=== PATIENT | male | born 1965 | race Two or more races ===

== ENCOUNTER 2023-02-05 15:26 | Inpatient (IN) | payer OTHER ==
[2023-02-05 16:01] VITALS: BMI 24.3
[2023-02-05] MEDS ORDERED: BISMUTH SUBSALICYLATE 524 MG/30 ML PO PRN (19:27)
[2023-02-05] MEDS ORDERED: MAG HYDROX/AL HYDROX/SIMETH 30 ML UNIT-DOSE CUP PO PRN (19:27)
[2023-02-05] MEDS ORDERED: IBUPROFEN 400 MG TABLET (FP) PO PRN (19:27)
[2023-02-05] MEDS ORDERED: BENZONATATE 200 MG CAPSULE PO PRN (19:27)
[2023-02-05] MEDS ORDERED: DICYCLOMINE HCL 10 MG CAPSULE PO PRN (19:27)
[2023-02-05] MEDS ORDERED: IBUPROFEN 600 MG TABLET (FP) PO PRN (19:27)
[2023-02-05] MEDS ORDERED: guaiFENesin 600 MG TABLET.ER (FP) PO PRN (19:27)
[2023-02-05] MEDS ORDERED: POLYETHYLENE GLYCOL (HEALTHYLAX) 3350 17 GM PACKET PO PRN (19:27)
[2023-02-05] MEDS ORDERED: MAGNESIUM HYDROX 2400MG/30ML ORAL SUSPENSION 30 ML CUP PO PRN (19:27)
[2023-02-05] MEDS ORDERED: P-EPHED 60MG/TRIPROLIDI 2.5MG TABLET PO PRN (19:27)
[2023-02-05] MEDS ORDERED: ACETAMINOPHEN 325 MG TABLET (FP) PO PRN (19:27)
[2023-02-05] MEDS ORDERED: LOPERAMIDE HCL 2 MG CAPSULE PO PRN (19:27)
[2023-02-05] MEDS ORDERED: NALOXONE HCL (KLOXXADO) 8 MG SPRAY NS PRN (19:27)
[2023-02-05] MEDS ORDERED: BENZOCAINE/MENTHOL (CHLORASEPTIC ) LOZENGE MM PRN (19:27)
[2023-02-05] MEDS ORDERED: NALOXONE HCL 0.4 MG/ML VIAL IM PRN (19:27)
[2023-02-05] MEDS ORDERED: NICOTINE POLACRILEX 2 MG GUM BUC PRN (19:27)
[2023-02-05] MEDS: THIAMINE HCL 100 MG TABLET (FP) PO SCH (23:10)
[2023-02-05] MEDS: MELATONIN 5 MG TABLETS PO SCH (23:10)
[2023-02-06] MEDS: PRENATAL VITAMINS W/ FOLIC ACID TABLET (FP) PO SCH (09:58)
[2023-02-06] MEDS: methaDONE HCL 10 MG TABLET (FOR DETOX USE ONLY) PO ONE (10:26)
[2023-02-06] MEDS: METOPROLOL TARTRATE 25 MG TABLET (FP) PO SCH (10:27)
[2023-02-06 11:21] LABS: HEMATOCRIT 42.3 % (35.4-49); HEMOGLOBIN 13.9 GM/dL (11.7-16.9); MCH 29.6 pg (25.7-33.7); MCHC 32.8 g/dl (32.0-35.9); MEAN CELL VOLUME 90.4 fl (80-96); MEAN PLT VOLUME 9.3 fl (7.5-11.1); PLATELET COUNT 224 10^3/uL (134-434); RBC 4.68 M/mm3 (4.00-5.60); RDW 14.3 % (11.9-15.9); WHITE BLOOD COUNT 10.1 K/mm3 (4.0-10.0)
[2023-02-06] MEDS: PNEUMOC 20-VAL CONJ-DIP CRM/PF 0.5 ML SYRINGE IM ONE (11:35)
[2023-02-06 12:00] LABS: POTASSIUM 5.5 mmol/L (3.5-5.1)
[2023-02-06 12:03] LABS: CALCIUM 8.9 mg/dL (8.5-10.1)
[2023-02-06 12:04] LABS: ALBUMIN 3.6 g/dl (3.4-5.0); BLOOD UREA NITROGEN 23.4 mg/dL (7-18)
[2023-02-06 12:08] LABS: TOT PROT 7.3 g/dl (6.4-8.2)
[2023-02-06 12:09] LABS: BILIRUBIN,TOTAL 0.6 mg/dL (0.2-1)
[2023-02-06] MEDS: ONDANSETRON *ODT* 4 MG TABLET SL PRN (15:57)
[2023-02-07] MEDS: METHOCARBAMOL 500 MG TABLET PO PRN (10:14)
[2023-02-07 12:46] LABS: BLOOD UREA NITROGEN 20.2 mg/dL (7-18)
[2023-02-07 12:49] LABS: CREATININE 0.9 mg/dL (0.55-1.3)
[2023-02-08] MEDS: ASPIRIN 81 MG CHEWABLE TABLETS PO ONE (05:14)
[2023-02-08] MEDS ORDERED: cloNIDine HCL 0.1 MG TABLET ONE (06:11)
[2023-02-08] MEDS: cloNIDine HCL 0.1 MG TABLET PO PRN (06:14)
[2023-02-08] MEDS: methaDONE HCL 10 MG TABLET (FOR DETOX USE ONLY) PO ONE (10:15)
[2023-02-09 05:19] VITALS: BP 140/99; PULSE 83; RESP 18; TEMP 97.7
[2023-02-09] MEDS ORDERED: LIDOCAINE PATCH REMOVAL MC SCH (22:00)
[2023-02-10] MEDS ORDERED: methaDONE HCL 10 MG TABLET (FOR DETOX USE ONLY) PO ONE (10:00)
[2023-02-10] MEDS ORDERED: LIDOCAINE 4% PATCH TP SCH (10:00)
== END 2023-02-09 15:08 | disposition home or self-care (01) | DRG 773 ==
LOC: YASAS 15:26 → Y3N 19:27
PROVIDERS: ADMIT Allergy & Immunology; ATTEND Surgery
PROC: HZ2ZZZZ Detoxification Services for Substance Abuse Treatment (ICD-10-PCS; principal; 2023-02-05)
DX: F11.23 Opioid dependence with withdrawal (principal); F14.20 Cocaine dependence, uncomplicated; F12.20 Cannabis dependence, uncomplicated; F17.210 Nicotine dependence, cigarettes, uncomplicated; G62.9 Polyneuropathy, unspecified; E87.6 Hypokalemia; I10 Essential (primary) hypertension; R56.9 Unspecified convulsions; R07.9 Chest pain, unspecified
CPT/HCPCS: 36415; 80048; 80053; 82962; 85027; 86780; 87635; 93005; 93010; Q0162

== ENCOUNTER 2023-02-09 07:10 | Observation (INO) | payer OTHER ==
[2023-02-09] MEDS ORDERED: ACETAMINOPHEN 1000 MG/100 ML BAG IVPB ONE (07:33)
[2023-02-09] MEDS ORDERED: MAG HYDROX/AL HYDROX/SIMETH 30 ML UNIT-DOSE CUP PO ONE (07:33)
[2023-02-09] MEDS ORDERED: FAMOTIDINE 20 MG/50 ML IVPB 20 MG/50 ML MG IVPB ONE (07:33)
[2023-02-09 08:40] LABS: BASO % 0.2 % (0-2.0); EOS % 0.4 % (0-4.5); HEMATOCRIT 49.6 % (35.4-49); HEMOGLOBIN 16.5 GM/dL (11.7-16.9); LYMPH % 19.1 % (8-40); MCH 29.4 pg (25.7-33.7); MCHC 33.3 g/dl (32.0-35.9); MEAN CELL VOLUME 88.3 fl (80-96); MEAN PLT VOLUME 8.9 fl (7.5-11.1); MONO % 11.5 % (3.8-10.2); NEUT % 68.8 % (42.8-82.8); PLATELET COUNT 266 10^3/uL (134-434); RBC 5.62 M/mm3 (4.00-5.60); RDW 14.2 % (11.9-15.9); WHITE BLOOD COUNT 12.9 K/mm3 (4.0-10.0)
[2023-02-09] MEDS ORDERED: ONDANSETRON 4 MG/2 ML VIAL IVPUSH ONE (08:49)
[2023-02-09] MEDS ORDERED: ONDANSETRON 4 MG/2 ML VIAL ONE (08:50)
[2023-02-09 09:01] LABS: POTASSIUM 3.6 mmol/L (3.5-5.1)
[2023-02-09 09:04] LABS: BLOOD UREA NITROGEN 24.4 mg/dL (7-18); CALCIUM 9.6 mg/dL (8.5-10.1)
[2023-02-09 09:05] LABS: ALBUMIN 3.7 g/dl (3.4-5.0)
[2023-02-09 09:09] LABS: BILIRUBIN,TOTAL 1.3 mg/dL (0.2-1); TOT PROT 7.6 g/dl (6.4-8.2)
[2023-02-09 09:20] VITALS: RESP 18; BMI 18.8
[2023-02-09] MEDS ORDERED: ASPIRIN 81 MG CHEWABLE TABLETS PO ONE (09:36)
[2023-02-09] MEDS ORDERED: ASPIRIN 81 MG CHEWABLE TABLETS ONE (10:31)
[2023-02-09] MEDS ORDERED: IBUPROFEN 400 MG TABLET (FP) PO PRN (10:44)
[2023-02-09] MEDS ORDERED: SODIUM CHLORIDE 1,000 ML IV SCH (10:45)
[2023-02-09] MEDS ORDERED: TRIMETHOBENZAMIDE HCL 200MG/2ML INJ IM PRN (10:49)
[2023-02-09] MEDS ORDERED: guaiFENesin 200 MG/10 ML 10 ML UNIT-DOSE CUPS PO PRN (11:42)
[2023-02-09] MEDS: NICOTINE 14 MG/24 HOURS TOPICAL PATCH TD SCH (11:46)
[2023-02-09] MEDS ORDERED: methaDONE HCL 10 MG TABLET ONE (11:46)
[2023-02-09] MEDS ORDERED: NICOTINE 14 MG/24 HOURS TOPICAL PATCH TD ONE (11:46)
[2023-02-09] MEDS ORDERED: AZITHROMYCIN 500 MG TABLET ONE (11:46)
[2023-02-09] MEDS: AZITHROMYCIN 500 MG TABLET PO SCH (11:47)
[2023-02-09 12:55] LABS: BILIRUBIN,DIRECT 0.3 mg/dL (0.0-0.2)
[2023-02-09] MEDS ORDERED: TRIMETHOBENZAMIDE HCL 200MG/2ML INJ IM ONE (18:53)
[2023-02-10] MEDS ORDERED: methaDONE HCL 10 MG TABLET ONE (05:35)
[2023-02-10] MEDS ORDERED: methaDONE HCL 10 MG TABLET PO ONE (06:00)
[2023-02-10 08:39] LABS: BASO % 0.8 % (0-2.0); EOS % 1.5 % (0-4.5); HEMATOCRIT 46.2 % (35.4-49); HEMOGLOBIN 15.5 GM/dL (11.7-16.9); LYMPH % 27.9 % (8-40); MCH 29.7 pg (25.7-33.7); MCHC 33.6 g/dl (32.0-35.9); MEAN CELL VOLUME 88.4 fl (80-96); MEAN PLT VOLUME 8.9 fl (7.5-11.1); MONO % 11.1 % (3.8-10.2); NEUT % 58.7 % (42.8-82.8); PLATELET COUNT 232 10^3/uL (134-434); RBC 5.22 M/mm3 (4.00-5.60); RDW 13.8 % (11.9-15.9); WHITE BLOOD COUNT 10.3 K/mm3 (4.0-10.0)
[2023-02-10 08:45] LABS: POTASSIUM 4.6 mmol/L (3.5-5.1)
[2023-02-10 09:04] LABS: CALCIUM 9.1 mg/dL (8.5-10.1)
[2023-02-10 09:05] LABS: ALBUMIN 3.5 g/dl (3.4-5.0); BLOOD UREA NITROGEN 24.1 mg/dL (7-18); MAGNESIUM 2.4 mg/dL (1.8-2.4)
[2023-02-10 09:08] LABS: CREATININE 1.1 mg/dL (0.55-1.3); TOT PROT 7.1 g/dl (6.4-8.2)
[2023-02-10] MEDS: NICOTINE 14 MG/24 HOURS TOPICAL PATCH TD SCH (09:32)
[2023-02-10] MEDS: AZITHROMYCIN 500 MG TABLET PO SCH (09:50)
[2023-02-10] MEDS ORDERED: ENOXAPARIN NA (PORCINE) 40 MG/0.4 ML DISP.SYRIN SQ SCH (10:00)
[2023-02-10 16:13] VITALS: TEMP 98.1
[2023-02-10 18:23] VITALS: BP 153/105; PULSE 110
== END 2023-02-10 17:45 | disposition other institution (70) ==
LOC: JER 07:10 → JERBED 07:58
PROVIDERS: ADMIT Internal Medicine; ATTEND Internal Medicine
PROC: 3E033NZ Introduction of Analgesics, Hypnotics, Sedatives into Peripheral Vein, Percutaneous Approach (ICD-10-PCS; principal; 2023-02-09)
PROC: 3E023GC Introduction of Other Therapeutic Substance into Muscle, Percutaneous Approach (ICD-10-PCS; 2023-02-09)
PROC: 3E0337Z Introduction of Electrolytic and Water Balance Substance into Peripheral Vein, Percutaneous Approach (ICD-10-PCS; 2023-02-09)
PROC: 3E033GC Introduction of Other Therapeutic Substance into Peripheral Vein, Percutaneous Approach (ICD-10-PCS; 2023-02-09)
DX: R07.89 Other chest pain (principal); F19.10 Other psychoactive substance abuse, uncomplicated; R94.5 Abnormal results of liver function studies; I10 Essential (primary) hypertension; Z29.89 Encounter for other specified prophylactic measures; Z86.16 Personal history of COVID-19
CPT/HCPCS: 36415; 70450-TC; 71045-TC-FY; 71275-TC; 72125-TC; 72128-TC; 72131-TC; 74174-TC; 80053; 82248; 82962; 83735; 84100; 84484; 85025; 85610; 85730; 86850; 86900; 86901; 93005; 93010; 93306-TC; 96361; 96372; 96374; 96375; 99285-25; G0378; Q9967